=== PATIENT | male | born 1945 | race Caucasian/White ===

== ENCOUNTER 2021-10-25 07:59 | Day surgery (SDC) | payer MEDICARE ==
[2021-10-19 15:18] LABS: CLARITY,URINE CLEAR (Clear); COLOR,URINE YELLOW (Yellow); GLUCOSE, URINE NEGATIVE (Neg); KETONES,URINE NEGATIVE (Neg); LEUKOCYTE ESTERASE ,URINE NEGATIVE (Neg); NITRITES, URINE NEGATIVE (Neg); OCCULT BLOOD,URINE NEGATIVE (Neg); PH,URINE 5.5 (4.8-8.0); PROTEIN,URINE NEGATIVE (Neg); UROBILINOGEN,URINE 0.2 E.U/dL (0.2-1.0)
[2021-10-19 15:20] LABS: BASOPHILS % (AUTO) 0.6 % (0-1); EOSINOPHILS # (AUTO) 0.1 X10'3 (0-0.9); EOSINOPHILS % (AUTO) 2.5 % (0-6); LYMPHOCYTES # (AUTO) 1.5 X10'3 (1.1-4.8); LYMPHOCYTES % (AUTO) 29.2 % (21-51); MEAN CORPUSCULAR HEMOGLOBIN 28.7 PG (27.0-31.0); MEAN CORPUSCULAR HGB CONC 33.8 g/dL (33.0-36.5); MEAN CORPUSCULAR VOLUME 84.8 FL (78-98); MEAN PLATELET VOLUME 6.9 FL (7.4-10.4); MONOCYTES # (AUTO) 0.4 X10'3 (0-0.9); NEUTROPHILS # (AUTO) 2.9 X10'3 (1.8-7.7); NEUTROPHILS % (AUTO) 58.7 % (42-75); PRE OP HEMATOCRIT 41.4 % (42.0-52.0); PRE OP PLATELET COUNT 208 X10'3 (140-440); RED BLOOD COUNT 4.88 X10'6 (4.70-6.10); RED CELL DISTRIBUTION WIDTH 14.4 % (11.5-14.5)
[2021-10-19 15:37] LABS: ALBUMIN 3.8 G/DL (3.4-5.0); ALKALINE PHOSPHATASE 67 IU/L (46-116); BLOOD UREA NITROGEN 17 MG/DL (7-18); BUN/CREATININE RATIO 18.3 (5.4-32.0); CALCIUM 9.2 MG/DL (8.5-10.1); CHLORIDE 103 MMOL/L (99-107); CREATININE 0.93 MG/DL (0.60-1.10); PRE OP ALT 12 U/L (30-65); PRE OP ANION GAP 7 (8-16); PRE OP AST 12 U/L (10-37); PRE OP BILIRUB, TOTAL 0.5 MG/DL (0.0-1.0); PRE OP GLUCOSE 115 MG/DL (70-104); PRE OP POTASSIUM 4.1 MMOL/L (3.4-5.1); PRE OP SODIUM 137 MMOL/L (135-145); TOTAL CARBON DIOXIDE 26.9 MMOL/L (24-32); TOTAL PROTEIN 7.5 G/DL (6.4-8.2); eGFR 79 ML/MIN
[2021-10-19 15:48] LABS: UA COLLECTION TYPE VOIDED
[2021-10-25] VITALS (17 sets, daily range): BP systolic 109–159; BP diastolic 56–80
[~2021-10-25] VITALS: Ht 177.8 cm; Wt 95.0 kg
[~2021-10-25 07:59] MED LIST: ASPI81TA52 PO; CLOP75TA34 PO; DOCUMENT DATE & TIME OF BETA-BLOCKER PO ONE; HYDR-3972 PO; ISOS60TA71 PO; LEVO75TA7 PO; METO-395 PO; NITR0.3T10 SL; PITA1TAB2 PO; SERT-433 PO; ceFAZolin inj. 2,000 MG in dextrose 5%-water 100 ML IV ONE; famotidine 20mg tablet PO ONE; ringers solution, lacted 1,000 ML IV SCH
--- NOTE | 2021-10-25 13:00 | NUR ---
PTS CHOSE NOT TO TAKE BELONGINGS AFTER ALL, PTS 1 BAG OF BELONGINGS TAKEN TO RR
[2021-10-25] MEDS ORDERED: BUPIVAcaine/PF 2.5 mg/ml (0.25%) 30ml vial ONE (13:24)
[2021-10-25] MEDS ORDERED: glycopyrrolate 0.2mg/ml inj ONE (13:52)
[2021-10-25] MEDS ORDERED: neostigmine methylsulfate 1 MG/ML 10ml vial ONE (13:52)
[2021-10-25] MEDS ORDERED: sevoflurane 250ml liquid IH ONE (13:52)
[2021-10-25] MEDS ORDERED: fentaNYL /PF 50mcg/ml 5ml ampule ONE (13:57)
[2021-10-25] MEDS ORDERED: midazolam 1 mg/ML 2ml injection ONE (13:57)
[2021-10-25] MEDS ORDERED: proCHLORperazine 10 MG/2 ml inj IV PRN (14:30)
[2021-10-25] MEDS ORDERED: ringers solution, lacted 1,000 ML IV SCH (14:30)
[2021-10-25] MEDS ORDERED: morphine 2 MG/ML inj. syringe IV PRN (14:30)
[2021-10-25] MEDS ORDERED: ondansetron/PF 4mg/2ml inj IV PRN (14:30)
[2021-10-25] MEDS ORDERED: meperidine/PF 25mg/ml syringe IV PRN ×2 (14:30)
[2021-10-25] MEDS ORDERED: acetaminophen 1,000mg/100ml IV 100 ML IV ONE (14:40)
[2021-10-25] MEDS ORDERED: rocuronium 10mg/ml inj IV ONE (14:40)
[2021-10-25] MEDS ORDERED: dexamethasone sod phosphate 4mg/ml inj. ONE (14:40)
[2021-10-25] MEDS ORDERED: propofol inj 20 ML IV ONE (14:41)
[2021-10-25] MEDS ORDERED: ondansetron/PF 4mg/2ml inj ONE (14:49)
--- NOTE | 2021-10-25 15:02 | NUR ---
Received from OR via [facility] , accompanied by Anesthesiologist DR MCKINNON and report given by Anesthesiolgist. PT PRESSNTS WITH 20G LEFT HAND, ABD STERI NAJMA DONG, VSPeewee. Addendum: 10/25/21 at 1522 by Fatmata Melvin RN, RN Amended: Links added.
[2021-10-25] MEDS: meperidine/PF 25mg/ml syringe IV PRN ×5 (15:16→17:26)
[2021-10-25] MEDS: morphine 4 MG/ML inj SYRINge IV PRN ×2 (15:28→15:35)
[2021-10-25] MEDS ORDERED: HYDROcodone/acetaminophen 10/325mg tab PO ONE (15:45)
--- NOTE | 2021-10-25 17:42 | NUR ---
PT HAS MET ALL DC CRITERIA, IV DC'S WITH CANNULA INTACT, VSS. PT HAS MODERATED PAIN 10/03, VSS. DC INSTRUCTIONS REVIEWED WITH PT, PT VERBALIZED UNDERSTANDING WITH NO FURTHER QUESTIONS AT THIS TIME. PT WHEELED OUT OF HOSPITAL TO PRIVATE VEHICLE WHERE PT'S DROVE HIM HOME. Addendum: 10/25/21 at 1816 by Fatmata Melvin RN, RN Amended: Links added.
== END 2021-10-25 17:42 | disposition home or self-care (01) ==
LOC: PAS 07:59
PROVIDERS: ATTEND Surgery
DX: K43.2 Incisional hernia without obstruction or gangrene (principal); I25.10 Atherosclerotic heart disease of native coronary artery without angina pectoris; F41.9 Anxiety disorder, unspecified; E78.5 Hyperlipidemia, unspecified; E03.9 Hypothyroidism, unspecified; I48.91 Unspecified atrial fibrillation; K21.9 Gastro-esophageal reflux disease without esophagitis; I25.2 Old myocardial infarction; Z20.822 Contact with and (suspected) exposure to COVID-19; Z79.899 Other long term (current) drug therapy; Z79.01 Long term (current) use of anticoagulants; Z95.5 Presence of coronary angioplasty implant and graft; Z95.1 Presence of aortocoronary bypass graft; Z87.891 Personal history of nicotine dependence; Z82.49 Family history of ischemic heart disease and other diseases of the circulatory system
CPT/HCPCS: 36415; 49654; 80053; 81003; 82948; 85025; 87635; 93005; C1781; C9803; J0131; J0690; J1100; J2175; J2250; J2270; J2405; J2704; J2710; J3010; J3490; J7030; J7060; J7120; Z7506; Z7508; Z7512; A4618; A7000